=== PATIENT | male | born 1950 ===

== ENCOUNTER 2017-06-21 17:39 | Emergency (ER) | payer MEDICARE ==
[2017-06-21 17:52] VITALS: BMI 25.0
[2017-06-21 17:53] VITALS: TEMP 97.9
[2017-06-21] MEDS ORDERED: Amoxicillin-Clav 875-125 mg Tab PO STA (18:19)
[2017-06-21] MEDS ORDERED: Tmp-Smz 800 mg-160 mg DS Tab PO STA (18:20)
[2017-06-21] MEDS ORDERED: Tetanus/Diphtheria Toxoids 0.5 ml Syringe IM ONE ×2 (18:21→18:28)
[2017-06-21] MEDS ORDERED: Amoxicillin-Clav 875-125 mg Tab PO ONE (18:28)
[2017-06-21] MEDS ORDERED: Tmp-Smz 800 mg-160 mg DS Tab ONE (18:28)
--- NOTE | 2017-06-21 18:50 | C.PDOC ---
History Of Present Illness 67 year old male with a Hx of diabetes presents to the ER after he sustained a laceration after a headboard fell on his left great toe at approximately 11:00 today. Patient states he applied turmeric on the laceration to try to stop the bleeding, however, bleeding persists which prompted visit. Denies other injuries Time Seen by Provider: 06/21/17 18:07 Chief Complaint (Nursing): Lower Extremity Problem/Injury History Per: Patient History/Exam Limitations: no limitations Onset/Duration Of Symptoms: Hrs Current Symptoms Are (Timing): Still Present Recent travel outside of the [place]: No - Ankle/Foot Description Of Injury: Struck With Object Past Medical History Reviewed: Historical Data, Nursing Documentation, Vital Signs Vital Signs: Last Vital Signs Temp 97.9 F 06/21/17 17:52 Pulse 68 06/21/17 19:56 Resp 20 06/21/17 19:56 BP 154/89 H 06/21/17 19:56 Pulse Ox 100 06/21/17 20:01 - Medical History PMH: Atrial Fibrillation, Hypercholesterolemia Family History: States: Unknown Family Hx - Social History Hx Alcohol Use: No Hx Substance Use: No - Immunization History Hx Tetanus Toxoid Vaccination: No Hx Influenza Vaccination: Yes Hx Pneumococcal Vaccination: No Review Of Systems Musculoskeletal: Positive for: Foot Pain Skin: Positive for: Other (Laceration) Neurological: Negative for: Weakness, Numbness Physical Exam - Physical Exam Appears: Non-toxic Skin: Warm, Dry Head: Atraumatic, Normacephalic Eye(s): bilateral: Normal Inspection Extremity: Normal ROM, Capillary Refill (<2 seconds), Other (1.5cm linear to mid left great toe, nail intact, FROM, no tendon involvement.) Pulses: Left Dorsalis Pedis: Normal, Right Dorsalis Pedis: Normal Neurological/Psych: Oriented x3, Normal Speech, Normal Motor, Normal Sensation Gait: Steady ED Course And Treatment O2 Sat by Pulse Oximetry: 100 (Room air) Pulse Ox Interpretation: Normal - Other Rad Left foot x-ray X-Ray: Viewed By Me, Read By Radiologist Interpretation: Comminuted fracture of the distal left great toe, not intra- articular. No foreign body seen. Medical Decision Making Medical Decision Making: Tetanus was administered. The wound was irrigated with pressurized saline and betadine. Patient placed on Augmentin and Bactrim for infection. The case was discussed with Podiatry oncall, and Resident Dr. Mclean has examined the patient at bedside. Case was discussed with Dr. Narendra Marrero (Dyeing Machine Back Tender) who states that the patient does not require admission into the hospital or need for surgical wash out. The wound was irrigated further and sutured by podiatry resident. Foot placed in Ortho Shoe. Disposition - Disposition Referrals: at [facility] [Outside] Disposition: HOME/ ROUTINE Disposition Time: 19:58 Condition: FAIR Additional Instructions: Follow up with the Podiatry clinic in 2 days without fail. Take antibiotics everyday no matter what until finished. Return if worsened. 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 - Scribe Statement The provider has reviewed the documentation as recorded by the Scribe Naveed Hi All medical record entries made by the Rosendo were at my direction and personally dictated by me. I have reviewed the chart and agree that the record accurately reflects my personal performance of the history, physical exam, medical decision making, and the department course for this patient. I have also personally directed, reviewed, and agree with the discharge instructions and disposition.
[2017-06-21] MEDS ORDERED: Lidocaine Hydrochloride 5 ML INJ ONE (19:11)
[2017-06-21 19:56] VITALS: BP 154/89; PULSE 68; RESP 20
[2017-06-21 20:01] VITALS: O2SAT 100
--- NOTE | 2017-06-21 22:58 | CP.PCM.CON ---
History of Present Illness - History of Present Illness History of Present Illness: 67 y/o male with pmhx of DM seen in the ED for left great toe injury. Patient states that a headboard fell on his toe earlier this morning and once the bleeding stopped he came to the ED. Patient denies trauma to any other aspects of body. Patient denies any pain at this time in his toe. Patient states that he applied tumeric on the toe to try and stop the bleeding. Patient denies any n /f/v/d/c/sob. pmhx: DM pshx: none SH: denies tobacco/ etoh use All: NKDA Review of Systems - Constitutional Constitutional: As Per HPI Past Patient History - Past Social History Smoking Status: Never Smoked - CARDIAC Hx Atrial Fibrillation: Yes Hx Hypercholesterolemia: Yes - ENDOCRINE/METABOLIC Hx Endocrine Disorders: Yes Hx Diabetes Mellitus Type 2: Yes - PSYCHIATRIC Hx Substance Use: No - SURGICAL HISTORY Hx Surgeries: No Meds Home Medications: Home Medication List Medication Instructions Recorded Confirmed Type Amoxicillin/Clavulanate [Augmentin 1 tab PO BID #19 tab 06/21/17 Rx 875 MG-125 MG] Sulfamethoxazole/Trimethoprim 1 tab PO BID #19 tab 06/21/17 Rx [Bactrim DS 800 mg-160 mg] Allergies/Adverse Reactions: Allergies Allergy/AdvReac Type Severity Reaction Status Date / Time No Known Allergies Allergy Verified 06/21/17 17:51 Physical Exam - Constitutional Appears: Well, Non-toxic, No Acute Distress - Extremities Exam Additional comments: left foot focused: vasc: DP/PT 2/4, TG wnl, CFT < 3 sec to all digits, pedal hair present, nonpitting edema noted to left hallux neuro: grossly diminished derm: nonpitting edema and erythema noted to hallux, open laceration noted dorsal hallux extending from lateral nail fold proximally approximately 4cm, probe to bone +, no ascending cellulitis, active bleeding noted, no probe to tendon, no purulence, no fluctuance, nail intact ortho: 1st ray ROM WNL, able to PF and DF 1st ray on passive and active ROM, mild pain on palpation of hallux - Neurological Exam Neurological exam: Alert, Oriented x3 - Psychiatric Exam Psychiatric exam: Normal Affect, Normal Mood Results - Vital Signs Recent Vital Signs: Last Vital Signs Temp 97.9 F 06/21/17 17:52 Pulse 68 06/21/17 19:56 Resp 20 06/21/17 19:56 BP 154/89 H 06/21/17 19:56 Pulse Ox 100 06/21/17 20:01 Assessment & Plan - Assessment and Plan (Free Text) Assessment: 67 y/o male seen at bedside in the ED for left great toe laceration and open fracture of distal phalanx Plan: patient evaluated and chart reviewed discussed in detail with attending Dr. Marrero labs and vitals reviewed; afebrile x rays of left foot reveal nonintra-articular comminuted fracture of distal phalanx of hallux left foot was prepped, 5CC of 1%lidocaine plain was given in a local hallux block type fashion laceration site was copiously irrigated with 1L of betadine/saline mixture laceration site reapproximated with 4-0 prolene left hallux dressed with betadine soaked gauze, 4x4 gauze, kerlix, ADALGISA bandage, surgical shoe patient tolerated procedure well without incident Rx Augmentin and Bactrim patient instructed to keep dressing clean,dry,intact until follow up visit patient instructed to follow up with Dr. Marrero in podiatry clinic on friday , 06/23/17
--- NOTE | 2017-06-22 11:52 | RAD ---
PROCEDURE: Radiographs of the left great toe. TECHNIQUE:: AP radiograph of the left foot, with oblique and lateral view of the left great toe. COMPARISON: None. FINDINGS: BONES: Comminuted fracture distal phalanx left great toe. There is a small curvilinear corticated appearing density within the medial soft tissues adjacent to the distal aspect proximal phalanx 4th toe. This could represent some old posttraumatic mineralization. Clinical correlation recommended. JOINTS: Minor degenerative changes 1st MTP joint SOFT TISSUES: Soft tissue swelling surrounding the distal phalanx left great toe Mild vascular calcifications are present. . OTHER FINDINGS: None. IMPRESSION: Comminuted fracture distal phalanx left great toe with surrounding soft tissue swelling.
== END 2017-06-21 20:03 | disposition home or self-care (01) ==
LOC: C.ER 17:39
DX: S92.422A Displaced fracture of distal phalanx of left great toe, initial encounter for closed fracture (principal); W22.8XXA Striking against or struck by other objects, initial encounter; Y92.89 Other specified places as the place of occurrence of the external cause; Z23 Encounter for immunization